=== PATIENT | male | born 1970 | race Caucasian/White ===

== ENCOUNTER 2016-12-22 12:57 | Inpatient (IN) | payer OTHER ==
[2016-12-22 17:59] VITALS: BMI 30.2
--- NOTE | 2016-12-22 19:14 | HP ---
COWS - Scale Resting Pulse: 1= CO 81-100 Sweatin= Chills/Flushing Restless Observation: 3= Extraneous Movement Pupil Size: 0= Normal to Room Light Bone or Joint Aches: 2= Severe Diffuse Aches Runny Nose/ Eye Tearin= Runny Nose/Eyes GI Upset > 30mins: 3= Vomiting/Diarrhea Tremor Observation: 2= Slight Tremor Visible Yawning Observation: 0= None Anxiety or Irritability: 2=Irritable/Anxious Goose Flesh Skin: 0=Smooth Skin COWS Score: 16 CIWA Score - CIWA Score Nausea/Vomitin Muscle Tremors: 4-Moderate,w/Arms Extend Anxiety: 4-Mod. Anxious/Guarded Agitation: 4-Moderately Restless Paroxysmal Sweats: 1-Minimal Palms Moist Orientation: 0-Oriented Tacttile Disturbances: 0-None Auditory Disturbances: 0-None Visual Disturbances: 0-None Headache: 1-Very Mild CIWA-Ar Total Score: 16 Admission ROS BHS - HPI Chief Complaint: withdrawal sx Allergies/Adverse Reactions: Allergies Allergy/AdvReac Type Severity Reaction Status Date / Time No Known Allergies Allergy Verified 12/22/16 19:13 History of Present Illness: 46 years old male with long history of alcohol opioid nicotine dependence has depression is admitted to detox Exam Limitations: No Limitations - Ebola screening Have you traveled outside of the country in the last 21 days: No Have you had contact with anyone from an Ebola affected area: No Have you been sick,other than usual withdrawal symptoms: No Do you have a fever: No - Review of Systems Constitutional: Chills, Changes in sleep, Weight Stable EENT: reports: No Symptoms Reported Respiratory: reports: No Symptoms reported Cardiac: reports: No Symptoms Reported GI: reports: Nausea, Poor Fluid Intake, Vomiting, Abdominal cramping : reports: No Symptoms Reported Musculoskeletal: reports: Back Pain, Joint Pain, Muscle Pain, Neck Pain Integumentary: reports: No Symptoms Reported Neuro: reports: Tremors Endocrine: reports: No Symptoms Reported Hematology: reports: No Symptoms Reported Psychiatric: reports: Judgement Intact, Orientated x3, Depressed Other Systems: Reviewed and Negative Patient History - Patient Medical History Hx Anemia: No Hx Asthma: No Hx Chronic Obstructive Pulmonary Disease (COPD): No Hx Cancer: No Hx Cardiac Disorders: No Hx Congestive Heart Failure: No Hx Hypertension: No Hx Hypercholesterolemia: No Hx Pacemaker: No HX Cerebrovascular Accident: No Hx Seizures: No Hx Dementia: No Hx Diabetes: No Hx Gastrointestinal Disorders: No Hx Liver Disease: No Hx Genitourinary Disorders: No Hx Sexually Transmitted Disorders: No Hx Renal Disease (ESRD): No Hx Thyroid Disease: No Hx Human Immunodeficiency Virus (HIV): No Hx Hepatitis C: No Hx Depression: Yes Hx Suicide Attempt: No Hx Bipolar Disorder: No Hx Schizophrenia: No - Patient Surgical History Past Surgical History: No - PPD History Previous Implant?: Yes Documented Results: Negative w/o proof Implanted On Prior [facility] Admission?: No PPD to be Administered?: Yes - Smoking Cessation Smoking history: Current every day smoker Have you smoked in the past 12 months: Yes Aproximately how many cigarettes per day: 20 Cigars Per Day: 0 Hx Chewing Tobacco Use: No Initiated information on smoking cessation: Yes 'Breaking Loose' booklet given: 12/22/16 - Substance & Tx. History Hx Alcohol Use: Yes Hx Substance Use: Yes Substance Use Type: Alcohol, Opiates Hx Substance Use Treatment: Yes - Substances Abused Alcohol Route: Oral Frequency: Daily Amount used: pint volka Age of first use: 7 Date of Last Use: 12/22/16 Heroin Route: Inhalation Frequency: Daily Amount used: 20 bags Age of first use: 23 Date of Last Use: 12/21/16 Family Disease History - Family Disease History Family Disease History: Heart Disease: Father (), Other: Father Admission Physical Exam BHS - Vital Signs Vital Signs: Vital Signs - 24 hr 12/22/16 17:50 Temperature 96.8 F L Pulse Rate 95 H Respiratory 18 Rate Blood Pressure 130/76 - Physical General Appearance: Yes: Appropriately Dressed, Mild Distress, Obese, Tremorous , Irritable, Sweating, Anxious HEENTM: Yes: Hearing grossly Normal, Normal ENT Inspection, Normocephalic, Normal Voice Respiratory: Yes: Chest Non-Tender, Lungs Clear, Normal Breath Sounds, No Respiratory Distress, No Accessory Muscle Use Neck: Yes: Supple, Trachea in good position Breast: Yes: Breasts Symetrical Cardiology: Yes: Regular Rhythm, S1, S2, Tachycardia Abdominal: Yes: Non Tender, Soft Genitourinary: Yes: Within Normal Limits Back: Yes: Normal Inspection Musculoskeletal: Yes: full range of Motion, Gait Steady, Back pain, Muscle Pain Extremities: Yes: Normal Inspection, Normal Range of Motion, Non-Tender, Tremors Neurological: Yes: Fully Oriented, Alert, Motor Strength 5/5, Normal Response, Depressed Affect, Babinski Integumentary: Yes: Warm Lymphatic: Yes: Within Normal Limits, Adenopathy - Diagnostic (1) Alcohol dependence with uncomplicated withdrawal Current Visit: Yes Status: Acute (2) Opioid dependence with withdrawal Current Visit: Yes Status: Acute (3) Nicotine dependence Current Visit: Yes Status: Acute Qualifiers: Nicotine product type: cigarettes Substance use status: in withdrawal Qualified Code(s): F17.213 - Nicotine dependence, cigarettes, with withdrawal (4) Depression (emotion) Current Visit: Yes Status: Suspected Qualifiers: Depression Type: dysthymia Qualified Code(s): F34.1 - Dysthymic disorder Cleared for Admission [facility] - Detox or Rehab [facility] Level of Care: Medically Managed Detox Regimen/Protocol: Methadone/Valium [facility] Breath Alcohol Content Breath Alcohol Content: 0.046 Urine Drug Screen - Results Drug Screen Negative: No Urine Drug Screen Results: OPI-Opiates
[2016-12-22] MEDS ORDERED: guaiFENesin/D-METHORPHAN HB 10 ML UNIT-DOSE CUPS PO PRN (19:17)
[2016-12-22] MEDS ORDERED: METHADONE HCL 10 MG TABLET (FOR DETOX USE ONLY) PO ONE ×2 (19:17→23:00)
[2016-12-22] MEDS ORDERED: diazePAM 5 MG TABLET PO ONE (19:17)
[2016-12-22] MEDS ORDERED: MAGNESIUM HYDROX 2400MG/30ML ORAL SUSPENSION 30 ML CUP PO PRN (19:17)
[2016-12-22] MEDS ORDERED: MENTHOL/PHENOL 1 EACH UD MM PRN (19:17)
[2016-12-22] MEDS ORDERED: MAGNESIUM CITRATE 300 ML BOTTLE PO PRN (19:17)
[2016-12-22] MEDS ORDERED: ACETAMINOPHEN 325 MG TABLET (FP) PO PRN (19:17)
[2016-12-22] MEDS ORDERED: LOPERAMIDE HCL 2 MG CAPSULE PO PRN (19:17)
[2016-12-22] MEDS ORDERED: NICOTINE POLACRILEX 4 MG GUM BC PRN (19:17)
[2016-12-22] MEDS ORDERED: P-EPHED 60MG/TRIPROLIDI 2.5MG TABLET PO PRN (19:17)
[2016-12-22] MEDS: diazePAM 5 MG TABLET PO SCH (22:50)
[2016-12-22] MEDS: diphenhydrAMINE HCL 50 MG CAPSULE PO PRN (22:50)
[2016-12-22] MEDS: THIAMINE HCL 100 MG TABLET (FP) PO SCH (22:51)
[2016-12-22 23:09] LABS: URINE APPEARANCE CLEAR; URINE BILIRUBIN NEGATIVE (NEGATIVE); URINE BLOOD NEGATIVE (NEGATIVE); URINE COLOR LTYELLOW; URINE GLUCOSE (UA) NEGATIVE (NEGATIVE); URINE KETONE NEGATIVE (NEGATIVE); URINE LEUK ESTERASE NEGATIVE (NEGATIVE); URINE NITRITE NEGATIVE (NEGATIVE); URINE PROTEIN NEGATIVE (NEGATIVE); URINE UROBILINOGEN NEGATIVE E.U./dl (0.2-1.0)
[2016-12-23] MEDS: diazePAM 5 MG TABLET PO SCH ×3 (05:36→22:44)
[2016-12-23] MEDS ORDERED: METHADONE HCL 10 MG TABLET (FOR DETOX USE ONLY) PO SCH (10:00)
[2016-12-23 10:24] LABS: MCH 30.4 pg (25.7-33.7); MEAN CELL VOLUME 89.4 fl (80-96); MEAN PLT VOLUME 8.4 fl (7.5-11.1); PLATELET COUNT 242 K/MM3 (134-434); RDW 14.1 % (11.9-15.9); WHITE BLOOD COUNT 7.5 K/mm3 (4.0-10.0)
[2016-12-23 10:51] LABS: ALBUMIN 3.7 g/dl (3.4-5.0); ALK PHOS 64 U/L (45-117); ANION GAP 9 (8-16); BILIRUBIN,TOTAL 0.8 mg/dL (0.2-1.0); CALCIUM 8.7 mg/dL (8.5-10.1); CO2 28 mmol/L (21-32); COCKROFT - GAULT 121.73; CREATININE 0.9 mg/dL (0.7-1.3); GLUCOSE,RANDOM 116 mg/dL (74-106); SGOT/AST 15 U/L (15-37); SGPT/ALT 20 U/L (12-78); TOT PROT 6.4 g/dl (6.4-8.2)
[2016-12-23] MEDS: PRENATAL VITAMINS W/ FOLIC ACID TABLET (FP) PO SCH (10:56)
[2016-12-23] MEDS: NICOTINE 21 MG/24 HOURS TOPICAL PATCH TD SCH (10:56)
[2016-12-23] MEDS: diazePAM 5 MG TABLET PO PRN ×2 (11:55→17:16)
--- NOTE | 2016-12-23 16:36 | PN ---
S CIWA - CIWA Score Nausea/Vomitin Muscle Tremors: 4-Moderate,w/Arms Extend Anxiety: 2 Agitation: 3 Paroxysmal Sweats: 3 Orientation: 0-Oriented Tacttile Disturbances: 0-None Auditory Disturbances: 2-Mild Harshness/Frighten Visual Disturbances: 1-Very Mild Sensitivity Headache: 2-Mild CIWA-Ar Total Score: 19 BHS COWS - Scale Resting Pulse: 1= [place] 81-100 Sweatin= Chills/Flushing Restless Observation: 0= Sits Still Pupil Size: 0= Normal to Room Light Bone or Joint Aches: 2= Severe Diffuse Aches Runny Nose/ Eye Tearin= Runny Nose/Eyes GI Upset > 30mins: 2= Nausea/Diarrhea Tremor Observation of Outstretched Hands: 2= Slight Tremor Visible Yawning Observation: 1= 1-2x During Session Anxiety or Irritability: 2=Irritable/Anxious Goose Flesh Skin: 3=Piloerection COWS Score: 16 S Progress Note (SOAP) Subjective: Nausea, H/A, Interrupted sleep, Body aches, Sweating, Tremors. Objective: PT. A & O X 3, OBSERVED AMBULATING ON UNIT. 12/23/16 16:35 Vital Signs Temperature 98.7 F 12/23/16 13:26 Pulse Rate 93 H 12/23/16 13:26 Respiratory Rate 20 12/23/16 13:26 Blood Pressure 105/74 12/23/16 13:26 O2 Sat by Pulse Oximetry (%) Laboratory Last Values WBC 7.5 K/mm3 (4.0-10.0) 12/23/16 07:40 RBC 4.61 M/mm3 (4.00-5.60) 12/23/16 07:40 Hgb 14.0 GM/dL (11.7-16.9) 12/23/16 07:40 Hct 41.2 % (35.4-49) 12/23/16 07:40 MCV 89.4 fl (80-96) 12/23/16 07:40 MCHC 34.0 g/dl (32.0-35.9) 12/23/16 07:40 RDW 14.1 % (11.9-15.9) 12/23/16 07:40 Plt Count 242 K/MM3 (134-434) 12/23/16 07:40 MPV 8.4 fl (7.5-11.1) 12/23/16 07:40 Sodium 141 mmol/L (136-145) 12/23/16 07:40 Potassium 4.5 mmol/L (3.5-5.1) 12/23/16 07:40 Chloride 104 mmol/L (98-107) 12/23/16 07:40 Carbon Dioxide 28 mmol/L (21-32) 12/23/16 07:40 Anion Gap 9 (8-16) 12/23/16 07:40 BUN 15 mg/dL (7-18) 12/23/16 07:40 Creatinine 0.9 mg/dL (0.7-1.3) 12/23/16 07:40 Creat Clearance w eGFR > 60 (>60) 12/23/16 07:40 Random Glucose 116 mg/dL (74-106) H 12/23/16 07:40 Calcium 8.7 mg/dL (8.5-10.1) 12/23/16 07:40 Total Bilirubin 0.8 mg/dL (0.2-1.0) 12/23/16 07:40 AST 15 U/L (15-37) 12/23/16 07:40 ALT 20 U/L (12-78) 12/23/16 07:40 Alkaline Phosphatase 64 U/L (45-117) 12/23/16 07:40 Total Protein 6.4 g/dl (6.4-8.2) 12/23/16 07:40 Albumin 3.7 g/dl (3.4-5.0) 12/23/16 07:40 Urine Color Ltyellow 12/22/16 22:09 Urine Appearance Clear 12/22/16 22:09 Urine pH 6.0 (5.0-8.0) 12/22/16 22:09 Urine Protein Negative (NEGATIVE) 12/22/16 22:09 Urine Glucose (UA) Negative (NEGATIVE) 12/22/16 22:09 Urine Ketones Negative (NEGATIVE) 12/22/16 22:09 Urine Blood Negative (NEGATIVE) 12/22/16 22:09 Urine Nitrite Negative (NEGATIVE) 12/22/16 22:09 Urine Bilirubin Negative (NEGATIVE) 12/22/16 22:09 Urine Urobilinogen Negative E.U./dl (0.2-1.0) 12/22/16 22:09 Ur Leukocyte Esterase Negative (NEGATIVE) 12/22/16 22:09 RPR Titer Nonreactive (NONREACTIVE) 12/23/16 07:40 LABS NOTED. Assessment: 12/23/16 16:36 WITHDRAWAL SYMPTOMS. Plan: CONTINUE DETOX. ADVISED PATIENT TO FOLLOW-UP WITH [facility] AFTER DISCHARGE FROM DETOX FOR GENERAL MEDICAL ASSESSMENT AND FOR ABNORMAL ADMISSION LAB VALUES.
[2016-12-23] MEDS: IBUPROFEN 400 MG TABLET (FP) PO PRN ×2 (17:16→23:14)
--- NOTE | 2016-12-23 17:23 | CONSULT ---
[facility] Psychiatric Consult - Data Date of interview: 12/23/16 Admission source: [facility] Identifying data: First admission to [facility] for this 46 y/o male seeking detox treatment,on ,for heroin and alcohol dependence.Patient is single without children,homeless,unemployed and supported on SSI benefits. Substance Abuse History: - Smoking Cessation. Smoking history: Current every day smoker. Have you smoked in the past 12 months: Yes. Aproximately how many cigarettes per day: 20. Cigars Per Day: 0. Hx Chewing Tobacco Use: No. Initiated information on smoking cessation: Yes. 'Breaking Loose' booklet given : 12/22/16. - Substance & Tx. History. Hx Alcohol Use: Yes. Hx Substance Use : Yes. Substance Use Type: Alcohol, Opiates. Hx Substance Use Treatment: Yes. - Substances Abused. Alcohol. Route: Oral. Frequency: Daily. Amount used: pint volka. Age of first use: 7. Date of Last Use: 12/22/16. Heroin. Route: Inhalation. Frequency: Daily. Amount used: 20 bags. Age of first use: 23. Date of Last Use: 12/21/16. Confirmed by patient. Medical History: Patient endorses good general health. Psychiatric History: No history of psychiatric hospializations.Patient reports psychiatric OPD care at the [facility] clinic in [facility].Diagnosed with MDD/Anxiety Disorder.Prescribed seroquel 400 mg po hs + celexa 20 mg/day + ambien 10 mg/hs (self-report).Mr Quinonez indicates that he took these medications two days ago.No history of suicide attempts. Physical/Sexual Abuse/Trauma History: Patient denies. Additional Comment: Urine Drug Screen Results: OPI-Opiates.Noted. Mental Status Exam - Mental Status Exam Alert and Oriented to: Time, Place, Person Cognitive Function: Good Patient Appearance: Well Groomed Mood: Nervous, Withdrawn, Anxious, Apprehensive Affect: Mood Congruent Patient Behavior: Fatigued, Appropriate, Cooperative Speech Pattern: Clear Voice Loudness: Normal Thought Process: Goal Oriented Thought Disorder: Not Present Hallucinations: Denies Suicidal Ideation: Denies Homicidal Ideation: Denies Insight/Judgement: Poor Sleep: Poorly, Difficulty falling asleep Appetite: Good Muscle strength/Tone: Normal Gait/Station: Normal Psychiatric Findings - Problem List ([place] 1, 2,3) (1) Alcohol dependence with uncomplicated withdrawal Current Visit: Yes Status: Acute (2) Nicotine dependence Current Visit: Yes Status: Acute Qualifiers: Nicotine product type: cigarettes Substance use status: in withdrawal Qualified Code(s): F17.213 - Nicotine dependence, cigarettes, with withdrawal (3) Opioid dependence with withdrawal Current Visit: Yes Status: Acute (4) MDD (major depressive disorder) Current Visit: Yes Status: Chronic (5) Insomnia Current Visit: Yes Status: Acute - Initial Treatment Plan Initial Treatment Plan: Psychoeducation.Detoxification.Medications : celexa 20 mg po daily + seroquel 100 mg po hs + ambien 5 mg po hs prn.Side effects/ benefits discussed with patient.He agrees with this plan of care.Observation.Medications are verified via survey of pharmacy claims : noted scripts for celexa 20 mg/30 days and seroquel 100 mg/30 tab for 30 days on at [facility] Medication Hx.No scripts needed at discharge.
[2016-12-23] MEDS ORDERED: QUEtiapine FUMARATE 50 MG TABLET ONE (21:37)
[2016-12-23] MEDS: THIAMINE HCL 100 MG TABLET (FP) PO SCH (22:43)
[2016-12-23] MEDS: QUEtiapine FUMARATE 100 MG TABLET (FP) PO SCH (22:44)
[2016-12-23] MEDS: diphenhydrAMINE HCL 50 MG CAPSULE PO PRN (22:46)
[2016-12-24] MEDS: diazePAM 5 MG TABLET PO PRN ×3 (05:46→17:15)
[2016-12-24] MEDS: NICOTINE 21 MG/24 HOURS TOPICAL PATCH TD SCH (10:44)
[2016-12-24] MEDS: CITALOPRAM HYDROBROMIDE 20 MG TABLET (FP) PO SCH (10:44)
[2016-12-24] MEDS: METHADONE HCL 5 MG TABLET (FOR DETOX USE ONLY) PO SCH (10:44)
[2016-12-24] MEDS: diazePAM 5 MG TABLET PO SCH ×2 (10:44→22:40)
[2016-12-24] MEDS: PRENATAL VITAMINS W/ FOLIC ACID TABLET (FP) PO SCH (10:44)
[2016-12-24] MEDS: IBUPROFEN 400 MG TABLET (FP) PO PRN ×2 (13:47→20:07)
--- NOTE | 2016-12-24 18:10 | PN ---
S CIWA - CIWA Score Nausea/Vomitin-No Nausea/No Vomiting Muscle Tremors: 4-Moderate,w/Arms Extend Anxiety: 3 Agitation: 1-Slight > Activity Paroxysmal Sweats: 3 Orientation: 0-Oriented Tacttile Disturbances: 0-None Auditory Disturbances: 2-Mild Harshness/Frighten Visual Disturbances: 3-Moderate Sensitivity Headache: 2-Mild CIWA-Ar Total Score: 18 BHS COWS - Scale Resting Pulse: 2= [place] 101-120 Sweatin= Chills/Flushing Restless Observation: 0= Sits Still Pupil Size: 0= Normal to Room Light Bone or Joint Aches: 2= Severe Diffuse Aches Runny Nose/ Eye Tearin= Runny Nose/Eyes GI Upset > 30mins: 1= Stomach Cramp Tremor Observation of Outstretched Hands: 2= Slight Tremor Visible Yawning Observation: 2= >3x During Session Anxiety or Irritability: 2=Irritable/Anxious Goose Flesh Skin: 0=Smooth Skin COWS Score: 14 S Progress Note (SOAP) Subjective: Stomach Cramping, H/A, Tremors, Body Aches, Interrupted sleep, Sweating. Objective: PT. A & O X 3, OBSERVED AMBULATING ON UNIT. 12/24/16 18:09 Vital Signs Temperature 98.4 F 12/24/16 17:45 Pulse Rate 99 H 12/24/16 17:45 Respiratory Rate 18 12/24/16 17:45 Blood Pressure 120/76 12/24/16 17:45 O2 Sat by Pulse Oximetry (%) Laboratory Last Values WBC 7.5 K/mm3 (4.0-10.0) 12/23/16 07:40 RBC 4.61 M/mm3 (4.00-5.60) 12/23/16 07:40 Hgb 14.0 GM/dL (11.7-16.9) 12/23/16 07:40 Hct 41.2 % (35.4-49) 12/23/16 07:40 MCV 89.4 fl (80-96) 12/23/16 07:40 MCHC 34.0 g/dl (32.0-35.9) 12/23/16 07:40 RDW 14.1 % (11.9-15.9) 12/23/16 07:40 Plt Count 242 K/MM3 (134-434) 12/23/16 07:40 MPV 8.4 fl (7.5-11.1) 12/23/16 07:40 Sodium 141 mmol/L (136-145) 12/23/16 07:40 Potassium 4.5 mmol/L (3.5-5.1) 12/23/16 07:40 Chloride 104 mmol/L (98-107) 12/23/16 07:40 Carbon Dioxide 28 mmol/L (21-32) 12/23/16 07:40 Anion Gap 9 (8-16) 12/23/16 07:40 BUN 15 mg/dL (7-18) 12/23/16 07:40 Creatinine 0.9 mg/dL (0.7-1.3) 12/23/16 07:40 Creat Clearance w eGFR > 60 (>60) 12/23/16 07:40 Random Glucose 116 mg/dL (74-106) H 12/23/16 07:40 Calcium 8.7 mg/dL (8.5-10.1) 12/23/16 07:40 Total Bilirubin 0.8 mg/dL (0.2-1.0) 12/23/16 07:40 AST 15 U/L (15-37) 12/23/16 07:40 ALT 20 U/L (12-78) 12/23/16 07:40 Alkaline Phosphatase 64 U/L (45-117) 12/23/16 07:40 Total Protein 6.4 g/dl (6.4-8.2) 12/23/16 07:40 Albumin 3.7 g/dl (3.4-5.0) 12/23/16 07:40 Urine Color Ltyellow 12/22/16 22:09 Urine Appearance Clear 12/22/16 22:09 Urine pH 6.0 (5.0-8.0) 12/22/16 22:09 Ur Specific [place] 1.015 (1.005-1.025) 12/22/16 22:09 Urine Protein Negative (NEGATIVE) 12/22/16 22:09 Urine Glucose (UA) Negative (NEGATIVE) 12/22/16 22:09 Urine Ketones Negative (NEGATIVE) 12/22/16 22:09 Urine Blood Negative (NEGATIVE) 12/22/16 22:09 Urine Nitrite Negative (NEGATIVE) 12/22/16 22:09 Urine Bilirubin Negative (NEGATIVE) 12/22/16 22:09 Urine Urobilinogen Negative E.U./dl (0.2-1.0) 12/22/16 22:09 Ur Leukocyte Esterase Negative (NEGATIVE) 12/22/16 22:09 RPR Titer Nonreactive (NONREACTIVE) 12/23/16 07:40 LABS NOTED. Assessment: 12/24/16 18:09 WITHDRAWAL SYMPTOMS. Plan: CONTINUE DETOX. ADVISED PATIENT TO FOLLOW-UP WITH REGISTERED NURSE AMBULATORY AFTER DISCHARGE FROM DETOX FOR GENERAL MEDICAL ASSESSMENT AND FOR ABNORMAL ADMISSION LAB VALUES.
[2016-12-24] MEDS: THIAMINE HCL 100 MG TABLET (FP) PO SCH (22:39)
[2016-12-24] MEDS: QUEtiapine FUMARATE 100 MG TABLET (FP) PO SCH (22:40)
[2016-12-24] MEDS: ZOLPIDEM TARTRATE 5 MG TABLET PO PRN (22:40)
[2016-12-25] MEDS: diphenhydrAMINE HCL 50 MG CAPSULE PO PRN (01:18)
[2016-12-25] MEDS: diazePAM 5 MG TABLET PO PRN ×3 (05:34→17:33)
[2016-12-25] MEDS: diazePAM 5 MG TABLET PO SCH ×2 (10:42→22:41)
[2016-12-25] MEDS: CITALOPRAM HYDROBROMIDE 20 MG TABLET (FP) PO SCH (10:42)
[2016-12-25] MEDS: METHADONE HCL 5 MG TABLET (FOR DETOX USE ONLY) PO SCH (10:43)
[2016-12-25] MEDS: PRENATAL VITAMINS W/ FOLIC ACID TABLET (FP) PO SCH (10:43)
[2016-12-25] MEDS: NICOTINE 21 MG/24 HOURS TOPICAL PATCH TD SCH (10:43)
--- NOTE | 2016-12-25 13:05 | EKG ---
Test Reason : Blood Pressure : / mmHG Vent. Rate : 083 BPM Atrial Rate : 083 BPM P-R Int : 146 ms QRS Dur : 106 ms QT Int : 406 ms P-R-T Axes : 027 -46 007 degrees QTc Int : 477 ms NORMAL SINUS RHYTHM LEFT ANTERIOR FASCICULAR BLOCK ABNORMAL ECG NO PREVIOUS ECGS AVAILABLE Confirmed by CARIDAD ANDINO, DAVID ([id number]) on 12/25/2016 1:05:09 PM Referred By: Confirmed By:DAVID MCLEAN MD
--- NOTE | 2016-12-25 13:26 | PN ---
BHS Progress Note (SOAP) Subjective: Sweating,interrupted sleep,restless. Objective: 12/25/16 13:25 Vital Signs - 8 hr 12/25/16 12/25/16 12/25/16 06:26 09:26 13:18 Temperature 95.4 F L 96.9 F L 95.9 F L Pulse Rate 82 87 90 Respiratory 18 18 18 Rate Blood Pressure 122/85 115/81 125/80 Laboratory Tests 12/22/16 12/23/16 12/23/16 22:09 07:40 07:40 WBC 7.5 RBC 4.61 Hgb 14.0 Hct 41.2 MCV 89.4 MCHC 34.0 RDW 14.1 Plt Count 242 MPV 8.4 Sodium 141 Potassium 4.5 Chloride 104 Carbon Dioxide 28 Anion Gap 9 BUN 15 Creatinine 0.9 Creat Clearance w eGFR > 60 Random Glucose 116 H Calcium 8.7 Total Bilirubin 0.8 AST 15 ALT 20 Alkaline Phosphatase 64 Total Protein 6.4 Albumin 3.7 Urine Color Ltyellow Urine Appearance Clear Urine pH 6.0 Ur Specific [place] 1.015 Urine Protein Negative Urine Glucose (UA) Negative Urine Ketones Negative Urine Blood Negative Urine Nitrite Negative Urine Bilirubin Negative Urine Urobilinogen Negative Ur Leukocyte Esterase Negative RPR Titer 12/23/16 07:40 WBC RBC Hgb Hct MCV MCHC RDW Plt Count MPV Sodium Potassium Chloride Carbon Dioxide Anion Gap BUN Creatinine Creat Clearance w eGFR Random Glucose Calcium Total Bilirubin AST ALT Alkaline Phosphatase Total Protein Albumin Urine Color Urine Appearance Urine pH Ur Specific Rudy Urine Protein Urine Glucose (UA) Urine Ketones Urine Blood Urine Nitrite Urine Bilirubin Urine Urobilinogen Ur Leukocyte Esterase RPR Titer Nonreactive labs noted Assessment: 12/25/16 13:25 Withdrawal sx. Plan: Continue detox
[2016-12-25] MEDS: IBUPROFEN 400 MG TABLET (FP) PO PRN ×2 (13:28→23:07)
[2016-12-25] MEDS: QUEtiapine FUMARATE 100 MG TABLET (FP) PO SCH (22:41)
[2016-12-25] MEDS: THIAMINE HCL 100 MG TABLET (FP) PO SCH (22:41)
[2016-12-25] MEDS: ZOLPIDEM TARTRATE 5 MG TABLET PO PRN (22:43)
[2016-12-26] MEDS: diphenhydrAMINE HCL 50 MG CAPSULE PO PRN ×2 (00:39→23:38)
[2016-12-26] MEDS: MAG HYDROX/AL HYDROX/SIMETH 30 ML UNIT-DOSE CUP PO PRN ×2 (00:39→23:38)
[2016-12-26] MEDS ORDERED: diazePAM 5 MG TABLET PO SCH (10:00)
[2016-12-26] MEDS ORDERED: METHADONE HCL 10 MG TABLET (FOR DETOX USE ONLY) PO SCH (10:00)
[2016-12-26] MEDS: CITALOPRAM HYDROBROMIDE 20 MG TABLET (FP) PO SCH (10:46)
[2016-12-26] MEDS: NICOTINE 21 MG/24 HOURS TOPICAL PATCH TD SCH (10:46)
[2016-12-26] MEDS: PRENATAL VITAMINS W/ FOLIC ACID TABLET (FP) PO SCH (10:46)
[2016-12-26] MEDS: IBUPROFEN 400 MG TABLET (FP) PO PRN ×2 (10:47→21:43)
--- NOTE | 2016-12-26 12:35 | PN ---
BHS Progress Note (SOAP) Subjective: ANXIETY,IRRITABILITY,SWEATS,RUNNY NOSE,NAUSEA. Objective: 12/26/16 12:35 Vital Signs Temperature 97.9 F 12/26/16 10:34 Pulse Rate 95 H 12/26/16 10:34 Respiratory Rate 18 12/26/16 10:34 Blood Pressure 114/79 12/26/16 10:34 O2 Sat by Pulse Oximetry (%) Laboratory Last Values WBC 7.5 K/mm3 (4.0-10.0) 12/23/16 07:40 RBC 4.61 M/mm3 (4.00-5.60) 12/23/16 07:40 Hgb 14.0 GM/dL (11.7-16.9) 12/23/16 07:40 Hct 41.2 % (35.4-49) 12/23/16 07:40 MCV 89.4 fl (80-96) 12/23/16 07:40 MCHC 34.0 g/dl (32.0-35.9) 12/23/16 07:40 RDW 14.1 % (11.9-15.9) 12/23/16 07:40 Plt Count 242 K/MM3 (134-434) 12/23/16 07:40 MPV 8.4 fl (7.5-11.1) 12/23/16 07:40 Sodium 141 mmol/L (136-145) 12/23/16 07:40 Potassium 4.5 mmol/L (3.5-5.1) 12/23/16 07:40 Chloride 104 mmol/L (98-107) 12/23/16 07:40 Carbon Dioxide 28 mmol/L (21-32) 12/23/16 07:40 Anion Gap 9 (8-16) 12/23/16 07:40 BUN 15 mg/dL (7-18) 12/23/16 07:40 Creatinine 0.9 mg/dL (0.7-1.3) 12/23/16 07:40 Creat Clearance w eGFR > 60 (>60) 12/23/16 07:40 Random Glucose 116 mg/dL (74-106) H 12/23/16 07:40 Calcium 8.7 mg/dL (8.5-10.1) 12/23/16 07:40 Total Bilirubin 0.8 mg/dL (0.2-1.0) 12/23/16 07:40 AST 15 U/L (15-37) 12/23/16 07:40 ALT 20 U/L (12-78) 12/23/16 07:40 Alkaline Phosphatase 64 U/L (45-117) 12/23/16 07:40 Total Protein 6.4 g/dl (6.4-8.2) 12/23/16 07:40 Albumin 3.7 g/dl (3.4-5.0) 12/23/16 07:40 Urine Color Ltyellow 12/22/16 22:09 Urine Appearance Clear 12/22/16 22:09 Urine pH 6.0 (5.0-8.0) 12/22/16 22:09 Ur Specific [place] 1.015 (1.005-1.025) 12/22/16 22:09 Urine Protein Negative (NEGATIVE) 12/22/16 22:09 Urine Glucose (UA) Negative (NEGATIVE) 12/22/16 22:09 Urine Ketones Negative (NEGATIVE) 12/22/16 22:09 Urine Blood Negative (NEGATIVE) 12/22/16 22:09 Urine Nitrite Negative (NEGATIVE) 12/22/16 22:09 Urine Bilirubin Negative (NEGATIVE) 12/22/16 22:09 Urine Urobilinogen Negative E.U./dl (0.2-1.0) 12/22/16 22:09 Ur Leukocyte Esterase Negative (NEGATIVE) 12/22/16 22:09 RPR Titer Nonreactive (NONREACTIVE) 12/23/16 07:40 Assessment: 12/26/16 12:35 WITHDRAWAL SX Plan: CONTINUE DETOX
[2016-12-26] MEDS ORDERED: ONDANSETRON *ODT* 4 MG TABLET SL PRN (12:36)
[2016-12-26] MEDS: QUEtiapine FUMARATE 100 MG TABLET (FP) PO SCH (21:43)
[2016-12-26] MEDS: THIAMINE HCL 100 MG TABLET (FP) PO SCH (21:46)
[2016-12-26] MEDS: ZOLPIDEM TARTRATE 5 MG TABLET PO PRN (21:46)
[2016-12-27] MEDS ORDERED: METHADONE HCL 5 MG TABLET (FOR DETOX USE ONLY) PO SCH (06:00)
[2016-12-27] MEDS: CITALOPRAM HYDROBROMIDE 20 MG TABLET (FP) PO SCH (09:41)
[2016-12-27] MEDS: NICOTINE 21 MG/24 HOURS TOPICAL PATCH TD SCH (09:41)
[2016-12-27] MEDS: PRENATAL VITAMINS W/ FOLIC ACID TABLET (FP) PO SCH (09:41)
--- NOTE | 2016-12-27 12:35 | DS ---
[facility] Detox Discharge Summary Admission Date: 12/22/16 Discharge Date: 12/27/16 - History Present History: Alcohol Dependence, Opioid Dependence Additional Comments: ADVISED PATIENT TO FOLLOW-UP WITH [facility] / REHAB MEDICAL PROVIDER AFTER DISCHARGE FROM DETOX FOR GENERAL MEDICAL ASSESSMENT. Pertinent Past History: Depression. - Physical Exam Results Vital Signs: Vital Signs Temperature 96.8 F L 12/27/16 10:28 Pulse Rate 81 12/27/16 10:28 Respiratory Rate 19 12/27/16 10:28 Blood Pressure 121/92 12/27/16 10:28 O2 Sat by Pulse Oximetry (%) Pertinent Admission Physical Exam Findings: WITHDRAWAL SYMPTOMS. Laboratory Last Values WBC 7.5 K/mm3 (4.0-10.0) 12/23/16 07:40 RBC 4.61 M/mm3 (4.00-5.60) 12/23/16 07:40 Hgb 14.0 GM/dL (11.7-16.9) 12/23/16 07:40 Hct 41.2 % (35.4-49) 12/23/16 07:40 MCV 89.4 fl (80-96) 12/23/16 07:40 MCHC 34.0 g/dl (32.0-35.9) 12/23/16 07:40 RDW 14.1 % (11.9-15.9) 12/23/16 07:40 Plt Count 242 K/MM3 (134-434) 12/23/16 07:40 MPV 8.4 fl (7.5-11.1) 12/23/16 07:40 Sodium 141 mmol/L (136-145) 12/23/16 07:40 Potassium 4.5 mmol/L (3.5-5.1) 12/23/16 07:40 Chloride 104 mmol/L (98-107) 12/23/16 07:40 Carbon Dioxide 28 mmol/L (21-32) 12/23/16 07:40 Anion Gap 9 (8-16) 12/23/16 07:40 BUN 15 mg/dL (7-18) 12/23/16 07:40 Creatinine 0.9 mg/dL (0.7-1.3) 12/23/16 07:40 Creat Clearance w eGFR > 60 (>60) 12/23/16 07:40 Random Glucose 116 mg/dL (74-106) H 12/23/16 07:40 Calcium 8.7 mg/dL (8.5-10.1) 12/23/16 07:40 Total Bilirubin 0.8 mg/dL (0.2-1.0) 12/23/16 07:40 AST 15 U/L (15-37) 12/23/16 07:40 ALT 20 U/L (12-78) 12/23/16 07:40 Alkaline Phosphatase 64 U/L (45-117) 12/23/16 07:40 Total Protein 6.4 g/dl (6.4-8.2) 12/23/16 07:40 Albumin 3.7 g/dl (3.4-5.0) 12/23/16 07:40 Urine Color Ltyellow 12/22/16 22:09 Urine Appearance Clear 12/22/16 22:09 Urine pH 6.0 (5.0-8.0) 12/22/16 22:09 Ur Specific [place] 1.015 (1.005-1.025) 12/22/16 22:09 Urine Protein Negative (NEGATIVE) 12/22/16 22:09 Urine Glucose (UA) Negative (NEGATIVE) 12/22/16 22:09 Urine Ketones Negative (NEGATIVE) 12/22/16 22:09 Urine Blood Negative (NEGATIVE) 12/22/16 22:09 Urine Nitrite Negative (NEGATIVE) 12/22/16 22:09 Urine Bilirubin Negative (NEGATIVE) 12/22/16 22:09 Urine Urobilinogen Negative E.U./dl (0.2-1.0) 12/22/16 22:09 Ur Leukocyte Esterase Negative (NEGATIVE) 12/22/16 22:09 RPR Titer Nonreactive (NONREACTIVE) 12/23/16 07:40 LABS NOTED. - Treatment Hospital Course: Detox Protocol Followed, Detoxed Safely, Responded well, Discharged Condition Good, Rehab Referral Accepted Patient has Accepted a Rehab Referral to: YES - [facility]. - Medication Discharge Medications: Ambulatory Orders Citalopram Hydrobromide [Celexa -] 20 mg PO DAILY #30 tablet 12/23/16 - Diagnosis (1) Alcohol dependence with uncomplicated withdrawal Current Visit: Yes Status: Acute (2) Insomnia Current Visit: Yes Status: Chronic Qualifiers: Insomnia type: unspecified Qualified Code(s): G47.00 - Insomnia, unspecified (3) Nicotine dependence Current Visit: Yes Status: Chronic Qualifiers: Nicotine product type: cigarettes Substance use status: in withdrawal Qualified Code(s): F17.213 - Nicotine dependence, cigarettes, with withdrawal (4) Opioid dependence with withdrawal Current Visit: Yes Status: Acute (5) MDD (major depressive disorder) Current Visit: Yes Status: Chronic Qualifiers: Major depression recurrence: recurrent Active/Remission status: remission status unspecified Qualified Code(s): F33.9 - Major depressive disorder, recurrent, unspecified - AMA Did Patient Leave Against Medical Advice: No
--- NOTE | 2016-12-27 14:06 | HP ---
Psychiatrist Admission - Data Date of interview: 12/27/16 Admission source: 3N Identifying data: This is the first [facility] admission for this 46 years old single male, unemployed on SSI, homeless Medical History: Unremarkable except LBP from herniated disc. Smokes cigarettes 1ppd Psychiatric History: Reports that he began to receiving psychiatric care in 2014 when he started attending [facility] where he was diagnosed with MDD. He has been precribed Celexa 20 mg po daily, Seroquel 100 mg po HS and Ambien 10 mg po HS. Denies previous hospitalization or suicidal attempt. He was seen by Dr Noel on 12/23/16 while in detox and was prescribed Celexa 20 mg po daily , Seroquel 100 mg po HS and Ambien 5 mg po HS prn for insomnia. At present, reports feeling anxious and sleeping poorly. Physical/Sexual Abuse/Trauma History: Denies history of emotional, physical or sexual abuse as well as DV relationship Additional Comment: No criminal history Vital Signs: Vital Signs - 24 hr 12/26/16 12/26/16 12/26/16 14:24 17:36 22:16 Temperature 98.8 F 98.0 F 96.5 F L Pulse Rate 96 H 100 H 89 Respiratory 18 18 18 Rate Blood Pressure 115/79 113/80 139/78 12/27/16 12/27/16 12/27/16 00:30 03:30 06:40 Temperature 96.7 F L Pulse Rate 75 Respiratory 18 18 16 Rate Blood Pressure 115/83 12/27/16 10:28 Temperature 96.8 F L Pulse Rate 81 Respiratory 19 Rate Blood Pressure 121/92 Allergies/Adverse Reactions: Allergies Allergy/AdvReac Type Severity Reaction Status Date / Time No Known Allergies Allergy Verified 12/22/16 19:13 Date of last physical exam: 12/22/16 Concur with the findings of this exam: Yes - Substance Abuse/Tx History Hx Alcohol Use: Yes Hx Substance Use: Yes Substance Use Type: Alcohol (Started drinking alcohol at age7, consumes one pint of vodka daily. Last drink on 12/22/16), Heroin (Started using heroin at age 23, consumes 20 bags daily. Last used on 12/21/16) Hx Substance Use Treatment: Yes (2 previous inpt detox. First inpt rehab) - Admission Criteria Previous failed treatment: No Poor recovery environment: Yes Comorbidities: Yes Lacks judgement: Yes Mental Status Exam - Mental Status Exam Alert and Oriented to: Time, Place, Person Cognitive Function: Fair Patient Appearance: Well Groomed Mood: Anxious Affect: Appropriate Patient Behavior: Cooperative Speech Pattern: Clear Voice Loudness: Normal Thought Process: Intact Thought Disorder: Not Present Hallucinations: Denies Suicidal Ideation: Denies Homicidal Ideation: Denies Insight/Judgement: Fair Sleep: Poorly Appetite: Fair Muscle strength/Tone: Normal Gait/Station: Normal Psychiatric Findings - Problem List ([place] 1, 2,3) (1) Alcohol dependence with uncomplicated withdrawal Current Visit: Yes Status: Acute (2) Opioid dependence with withdrawal Current Visit: Yes Status: Acute (3) Nicotine dependence Current Visit: Yes Status: Chronic Qualifiers: Nicotine product type: cigarettes Substance use status: in withdrawal Qualified Code(s): F17.213 - Nicotine dependence, cigarettes, with withdrawal (4) MDD (major depressive disorder) Current Visit: Yes Status: Chronic Qualifiers: Major depression recurrence: recurrent Active/Remission status: remission status unspecified Qualified Code(s): F33.9 - Major depressive disorder, recurrent, unspecified - Initial Treatment Plan Initial Treatment Plan: 1) Continue Celexa 20 mg po daily and Seroquel 100 mg po HS. 2) Monitor progress
[2016-12-27] MEDS: IBUPROFEN 400 MG TABLET (FP) PO PRN (20:39)
[2016-12-27] MEDS: QUEtiapine FUMARATE 100 MG TABLET (FP) PO SCH (21:20)
[2016-12-27] MEDS: THIAMINE HCL 100 MG TABLET (FP) PO SCH (21:20)
[2016-12-27] MEDS: diphenhydrAMINE HCL 50 MG CAPSULE PO PRN ×2 (21:21→22:44)
[2016-12-28] MEDS: hydrOXYzine PAMOATE 25 MG CAPSULE (FP) PO PRN ×2 (00:37→16:53)
[2016-12-28] MEDS: metFORMIN HCL 500 MG TABLET (FP) PO SCH ×2 (07:06→16:53)
[2016-12-28] MEDS: IBUPROFEN 400 MG TABLET (FP) PO PRN ×3 (10:24→21:51)
[2016-12-28] MEDS: PRENATAL VITAMINS W/ FOLIC ACID TABLET (FP) PO SCH (10:25)
[2016-12-28] MEDS: LISINOPRIL 5 MG TABLET (FP) PO SCH (10:25)
[2016-12-28] MEDS: ASPIRIN COATED 81 MG TABLET.EC PO SCH (10:25)
[2016-12-28] MEDS: CITALOPRAM HYDROBROMIDE 20 MG TABLET (FP) PO SCH (10:25)
[2016-12-28] MEDS: NICOTINE 21 MG/24 HOURS TOPICAL PATCH TD SCH (10:25)
--- NOTE | 2016-12-28 14:25 | PN ---
Psychiatric Progress Note Vital Signs: Vital Signs Period Temp Pulse Resp BP Sys/Raymond Pulse Ox Last 24 Hr 97.6 F 79 18-18 117/86 Date of Session: 12/28/16 Chief Complaint:: Insomnia HPI: Patient addressing Alcohol and Opoid Dependence comorbid with Nicotine Dependence and Major depressive Disorder Current Medications: Active Medications Generic Name Dose Route Start Last Admin Trade Name Freq PRN Reason Stop Dose Admin Acetaminophen 650 mg 12/22/16 19:17 12/27/16 22:45 Tylenol - PO 650 mg Q4H PRN Administration FEVER OR PAIN Al Hydroxide/Mg Hydroxide 30 ml 12/22/16 19:17 12/26/16 23:38 Mylanta Oral Suspension - PO 30 ml Q6H PRN Administration DYSPEPSIA Aspirin 81 mg 12/28/16 10:00 12/28/16 10:25 Ecotrin - PO 81 mg DAILY GUILLERMINA Administration Citalopram Hydrobromide 20 mg 12/24/16 10:00 12/28/16 10:25 Celexa - PO 20 mg DAILY GUILLERMINA Administration Diphenhydramine HCl 50 mg 12/22/16 19:17 12/27/16 22:44 Benadryl - PO 50 mg HSMR1 PRN Administration INSOMNIA Eucalyptus/Menthol/Phenol/Sorbitol 1 each 12/22/16 19:17 Cepastat Lozenge - MM Q4H PRN SORE THROAT Guaifenesin 10 ml 12/22/16 19:17 Robitussin Dm - PO Q6H PRN COUGH Hydroxyzine Pamoate 25 mg 12/26/16 10:41 12/28/16 00:37 Vistaril - PO 25 mg Q4H PRN Administration FOR ITCHING Ibuprofen 400 mg 12/22/16 19:17 12/28/16 10:24 Motrin - PO 400 mg Q6H PRN Administration SEVERE PAIN Lisinopril 5 mg 12/28/16 10:00 12/28/16 10:25 Prinivil PO 5 mg DAILY GUILLERMINA Administration Loperamide HCl 4 mg 12/22/16 19:17 Imodium - PO Q6H PRN DIARRHEA Magnesium Citrate 300 ml 12/22/16 19:17 Citroma - PO Q48H PRN CONSTIPATION Magnesium Hydroxide 30 ml 12/22/16 19:17 Milk Of Magnesia - PO DAILY PRN CONSTIPATION Metformin HCl 500 mg 12/28/16 07:00 12/28/16 07:06 Glucophage - PO 500 mg BID@0700,1630 GUILLERMINA Administration Nicotine 21 mg 12/23/16 10:00 12/28/16 10:25 Nicoderm Patch - TD 21 mg DAILY GUILLERMINA Administration Nicotine Polacrilex 4 mg 12/22/16 19:17 Nicorette Gum - BC Q2H PRN NICOTINE REPLACEMENT RX Ondansetron HCl 4 mg 12/26/16 12:36 Zofran Odt - SL Q6H PRN NAUSEA AND/OR VOMITING Multivit/Folic Acid/Iron 1 tab 12/23/16 10:00 12/28/16 10:25 Vitamins (Sjr) - PO 1 tab DAILY GUILLERMINA Administration Pseudoephedrine/Triprolidine 1 combo 12/22/16 19:17 Actifed - PO TID PRN NASAL CONGESTION Quetiapine Fumarate 100 mg 12/23/16 22:00 12/27/16 21:20 Seroquel - PO 100 mg HS GUILLERMINA Administration Thiamine HCl 100 mg 12/22/16 22:00 12/27/16 21:20 Vitamin B1 - PO 100 mg HS GUILLERMINA Administration Current Side Effect: No Lab tests ordered: Yes Lab tests reviewed: Yes Provider note:: Patient reports experioencing difficulty to sleep. Told shiela that he has been sleeping poorly despite taking Seroquel 100 mg po HS and Benadryl 50 mg x2. Trazadone 100 mg po HS will be added to his regimen to address sleep. Benefits vs Risks of medication discussed with patient and he agreed to take it Total face to face time:: 25 Mental Status Exam - Mental Status Exam Alert and Oriented to: Time, Place, Person Cognitive Function: Fair Patient Appearance: Well Groomed Mood: Hopeful, Euthymic Affect: Appropriate Patient Behavior: Cooperative Speech Pattern: Clear Voice Loudness: Normal Thought Process: Intact Thought Disorder: Not Present Hallucinations: Denies Suicidal Ideation: Denies Homicidal Ideation: Denies Insight/Judgement: Poor Sleep: Poorly Appetite: Good Muscle strength/Tone: Normal Gait/Station: Normal Psychiatric Treatment Plan - Problem List (1) Alcohol dependence with uncomplicated withdrawal Current Visit: Yes (2) Opioid dependence with withdrawal Current Visit: Yes (3) Nicotine dependence Current Visit: Yes Qualifiers: Nicotine product type: cigarettes Substance use status: in withdrawal Qualified Code(s): F17.213 - Nicotine dependence, cigarettes, with withdrawal (4) MDD (major depressive disorder) Current Visit: Yes Qualifiers: Major depression recurrence: recurrent Active/Remission status: remission status unspecified Qualified Code(s): F33.9 - Major depressive disorder, recurrent, unspecified Initial treatment plan: 1) Start Trazadone 100 mg po HS for insomnia. 2) Monitor progress
[2016-12-28] MEDS: diphenhydrAMINE HCL 25 MG CAPSULE (FP) PO PRN (15:56)
[2016-12-28] MEDS: QUEtiapine FUMARATE 100 MG TABLET (FP) PO SCH (21:50)
[2016-12-28] MEDS: THIAMINE HCL 100 MG TABLET (FP) PO SCH (21:50)
[2016-12-28] MEDS: traZODone HCL 100 MG TABLET (FP) PO SCH (21:50)
[2016-12-28] MEDS: diphenhydrAMINE HCL 50 MG CAPSULE PO PRN (21:51)
[2016-12-29] MEDS: diphenhydrAMINE HCL 50 MG CAPSULE PO PRN (00:52)
[2016-12-29] MEDS: hydrOXYzine PAMOATE 25 MG CAPSULE (FP) PO PRN (02:18)
[2016-12-29] MEDS: metFORMIN HCL 500 MG TABLET (FP) PO SCH ×2 (06:40→16:58)
[2016-12-29] MEDS: PRENATAL VITAMINS W/ FOLIC ACID TABLET (FP) PO SCH (10:42)
[2016-12-29] MEDS: LISINOPRIL 5 MG TABLET (FP) PO SCH (10:42)
[2016-12-29] MEDS: CITALOPRAM HYDROBROMIDE 20 MG TABLET (FP) PO SCH (10:42)
[2016-12-29] MEDS: ASPIRIN COATED 81 MG TABLET.EC PO SCH (10:42)
[2016-12-29] MEDS: NICOTINE 21 MG/24 HOURS TOPICAL PATCH TD SCH (10:42)
[2016-12-29] MEDS: THIAMINE HCL 100 MG TABLET (FP) PO SCH (21:49)
[2016-12-29] MEDS: QUEtiapine FUMARATE 100 MG TABLET (FP) PO SCH (21:49)
[2016-12-29] MEDS: traZODone HCL 100 MG TABLET (FP) PO SCH (21:49)
[2016-12-30] MEDS: metFORMIN HCL 500 MG TABLET (FP) PO SCH ×2 (06:54→16:42)
[2016-12-30] MEDS: LISINOPRIL 5 MG TABLET (FP) PO SCH (10:15)
[2016-12-30] MEDS: NICOTINE 21 MG/24 HOURS TOPICAL PATCH TD SCH (10:15)
[2016-12-30] MEDS: CITALOPRAM HYDROBROMIDE 20 MG TABLET (FP) PO SCH (10:15)
[2016-12-30] MEDS: PRENATAL VITAMINS W/ FOLIC ACID TABLET (FP) PO SCH (10:15)
[2016-12-30] MEDS: ASPIRIN COATED 81 MG TABLET.EC PO SCH (10:15)
[2016-12-30] MEDS: QUEtiapine FUMARATE 100 MG TABLET (FP) PO SCH (21:49)
[2016-12-30] MEDS: traZODone HCL 100 MG TABLET (FP) PO SCH (23:03)
[2016-12-30] MEDS: THIAMINE HCL 100 MG TABLET (FP) PO SCH (23:04)
[2016-12-31] MEDS: IBUPROFEN 400 MG TABLET (FP) PO PRN (01:39)
[2016-12-31] MEDS: metFORMIN HCL 500 MG TABLET (FP) PO SCH ×2 (07:10→16:43)
[2016-12-31] MEDS: LISINOPRIL 5 MG TABLET (FP) PO SCH (10:32)
[2016-12-31] MEDS: NICOTINE 21 MG/24 HOURS TOPICAL PATCH TD SCH (10:32)
[2016-12-31] MEDS: ASPIRIN COATED 81 MG TABLET.EC PO SCH (10:32)
[2016-12-31] MEDS: PRENATAL VITAMINS W/ FOLIC ACID TABLET (FP) PO SCH (10:32)
[2016-12-31] MEDS: CITALOPRAM HYDROBROMIDE 20 MG TABLET (FP) PO SCH (10:32)
[2016-12-31] MEDS: diphenhydrAMINE HCL 25 MG CAPSULE (FP) PO PRN (17:24)
[2016-12-31] MEDS: QUEtiapine FUMARATE 100 MG TABLET (FP) PO SCH (21:27)
[2016-12-31] MEDS: THIAMINE HCL 100 MG TABLET (FP) PO SCH (21:27)
[2016-12-31] MEDS: traZODone HCL 100 MG TABLET (FP) PO SCH (21:28)
[2017-01-01] MEDS: metFORMIN HCL 500 MG TABLET (FP) PO SCH ×2 (07:00→17:08)
[2017-01-01] MEDS: CITALOPRAM HYDROBROMIDE 20 MG TABLET (FP) PO SCH (10:51)
[2017-01-01] MEDS: ASPIRIN COATED 81 MG TABLET.EC PO SCH (10:51)
[2017-01-01] MEDS: LISINOPRIL 5 MG TABLET (FP) PO SCH (10:51)
[2017-01-01] MEDS: PRENATAL VITAMINS W/ FOLIC ACID TABLET (FP) PO SCH (10:53)
[2017-01-01] MEDS: NICOTINE 21 MG/24 HOURS TOPICAL PATCH TD SCH (10:53)
[2017-01-01] MEDS: IBUPROFEN 400 MG TABLET (FP) PO PRN (12:04)
[2017-01-01] MEDS: diphenhydrAMINE HCL 25 MG CAPSULE (FP) PO PRN (14:42)
[2017-01-01] MEDS: QUEtiapine FUMARATE 100 MG TABLET (FP) PO SCH (21:42)
[2017-01-01] MEDS: ATORVASTATIN CA 10 MG TABLET (FP) PO SCH (21:42)
[2017-01-01] MEDS: THIAMINE HCL 100 MG TABLET (FP) PO SCH (21:43)
[2017-01-01] MEDS: traZODone HCL 100 MG TABLET (FP) PO SCH (21:43)
[2017-01-02] MEDS: diphenhydrAMINE HCL 25 MG CAPSULE (FP) PO PRN (02:20)
[2017-01-02] MEDS: metFORMIN HCL 500 MG TABLET (FP) PO SCH ×2 (07:31→16:43)
[2017-01-02] MEDS: CITALOPRAM HYDROBROMIDE 20 MG TABLET (FP) PO SCH (10:30)
[2017-01-02] MEDS: ASPIRIN COATED 81 MG TABLET.EC PO SCH (10:30)
[2017-01-02] MEDS: PRENATAL VITAMINS W/ FOLIC ACID TABLET (FP) PO SCH (10:30)
[2017-01-02] MEDS: LISINOPRIL 5 MG TABLET (FP) PO SCH (10:30)
[2017-01-02] MEDS: NICOTINE 21 MG/24 HOURS TOPICAL PATCH TD SCH (10:30)
[2017-01-02] MEDS: THIAMINE HCL 100 MG TABLET (FP) PO SCH (21:24)
[2017-01-02] MEDS: ATORVASTATIN CA 10 MG TABLET (FP) PO SCH (21:24)
[2017-01-02] MEDS: traZODone HCL 100 MG TABLET (FP) PO SCH (23:28)
[2017-01-02] MEDS: QUEtiapine FUMARATE 100 MG TABLET (FP) PO SCH (23:28)
[2017-01-03] MEDS: metFORMIN HCL 500 MG TABLET (FP) PO SCH ×2 (06:33→16:51)
[2017-01-03] MEDS: LISINOPRIL 5 MG TABLET (FP) PO SCH (10:35)
[2017-01-03] MEDS: CITALOPRAM HYDROBROMIDE 20 MG TABLET (FP) PO SCH (10:35)
[2017-01-03] MEDS: ASPIRIN COATED 81 MG TABLET.EC PO SCH (10:35)
[2017-01-03] MEDS: NICOTINE 21 MG/24 HOURS TOPICAL PATCH TD SCH (10:36)
[2017-01-03] MEDS: PRENATAL VITAMINS W/ FOLIC ACID TABLET (FP) PO SCH (10:36)
[2017-01-03] MEDS: ATORVASTATIN CA 10 MG TABLET (FP) PO SCH (21:34)
[2017-01-03] MEDS: traZODone HCL 100 MG TABLET (FP) PO SCH (22:47)
[2017-01-03] MEDS: THIAMINE HCL 100 MG TABLET (FP) PO SCH ×2 (22:48→23:02)
[2017-01-03] MEDS: QUEtiapine FUMARATE 100 MG TABLET (FP) PO SCH (22:48)
[2017-01-04] MEDS: metFORMIN HCL 500 MG TABLET (FP) PO SCH ×2 (07:28→16:53)
[2017-01-04] MEDS: CITALOPRAM HYDROBROMIDE 20 MG TABLET (FP) PO SCH (09:43)
[2017-01-04] MEDS: ASPIRIN COATED 81 MG TABLET.EC PO SCH (09:43)
[2017-01-04] MEDS: LISINOPRIL 5 MG TABLET (FP) PO SCH (09:43)
[2017-01-04] MEDS: NICOTINE 21 MG/24 HOURS TOPICAL PATCH TD SCH (09:44)
[2017-01-04] MEDS: PRENATAL VITAMINS W/ FOLIC ACID TABLET (FP) PO SCH (09:44)
[2017-01-04] MEDS: diphenhydrAMINE HCL 50 MG CAPSULE PO PRN (21:04)
[2017-01-04] MEDS: QUEtiapine FUMARATE 100 MG TABLET (FP) PO SCH (21:04)
[2017-01-04] MEDS: THIAMINE HCL 100 MG TABLET (FP) PO SCH (21:04)
[2017-01-04] MEDS: ATORVASTATIN CA 10 MG TABLET (FP) PO SCH (21:05)
[2017-01-04] MEDS: traZODone HCL 100 MG TABLET (FP) PO SCH (21:05)
[2017-01-04] MEDS: hydrOXYzine PAMOATE 25 MG CAPSULE (FP) PO PRN (23:49)
[2017-01-05] MEDS: metFORMIN HCL 500 MG TABLET (FP) PO SCH (06:04)
[2017-01-05 06:48] VITALS: TEMP 97.5
[2017-01-05] MEDS: NICOTINE 21 MG/24 HOURS TOPICAL PATCH TD SCH (10:18)
[2017-01-05] MEDS: PRENATAL VITAMINS W/ FOLIC ACID TABLET (FP) PO SCH (10:18)
[2017-01-05] MEDS: CITALOPRAM HYDROBROMIDE 20 MG TABLET (FP) PO SCH (10:18)
[2017-01-05] MEDS: LISINOPRIL 5 MG TABLET (FP) PO SCH (10:19)
[2017-01-05] MEDS: ASPIRIN COATED 81 MG TABLET.EC PO SCH (10:19)
[2017-01-05 10:40] VITALS: BP 133/73; PULSE 74
--- NOTE | 2017-01-05 11:17 | PN ---
Psychiatric Progress Note Vital Signs: Vital Signs Period Temp Pulse Resp BP Sys/Raymond Pulse Ox Last 24 Hr 97.5 F-97.5 F 74-76 16-18 115-133/73-79 Date of Session: 01/05/17 Chief Complaint:: Discharge Note HPI: Patient addressing Alcohol and Opoid Dependence comorbid with Nicotine Dependence and MDD Current Medications: Active Medications Generic Name Dose Route Start Last Admin Trade Name Freq PRN Reason Stop Dose Admin Acetaminophen 650 mg 12/22/16 19:17 12/27/16 22:45 Tylenol - PO 650 mg Q4H PRN Administration FEVER OR PAIN Al Hydroxide/Mg Hydroxide 30 ml 12/22/16 19:17 12/26/16 23:38 Mylanta Oral Suspension - PO 30 ml Q6H PRN Administration DYSPEPSIA Aspirin 81 mg 12/28/16 10:00 01/05/17 10:19 Ecotrin - PO 81 mg DAILY GUILLERMINA Administration Atorvastatin Calcium 10 mg 01/01/17 22:00 01/04/17 21:05 Lipitor - PO 10 mg HS GUILLERMINA Administration Citalopram Hydrobromide 20 mg 12/24/16 10:00 01/05/17 10:18 Celexa - PO 20 mg DAILY GUILLERMINA Administration Diphenhydramine HCl 50 mg 12/22/16 19:17 01/04/17 21:04 Benadryl - PO 50 mg HSMR1 PRN Administration INSOMNIA Diphenhydramine HCl 25 mg 12/28/16 15:27 01/02/17 02:20 Benadryl - PO 25 mg Q6H PRN Administration FOR ITCHING Eucalyptus/Menthol/Phenol/Sorbitol 1 each 12/22/16 19:17 Cepastat Lozenge - MM Q4H PRN SORE THROAT Guaifenesin 10 ml 12/22/16 19:17 Robitussin Dm - PO Q6H PRN COUGH Hydroxyzine Pamoate 25 mg 12/26/16 10:41 01/04/17 23:49 Vistaril - PO 25 mg Q4H PRN Administration FOR ITCHING Ibuprofen 400 mg 12/22/16 19:17 01/01/17 12:04 Motrin - PO 400 mg Q6H PRN Administration SEVERE PAIN Lisinopril 5 mg 12/28/16 10:00 05/26/17 10:19 Prinivil PO 5 mg DAILY GUILLERMINA Administration Loperamide HCl 4 mg 12/22/16 19:17 Imodium - PO Q6H PRN DIARRHEA Magnesium Citrate 300 ml 12/22/16 19:17 Citroma - PO Q48H PRN CONSTIPATION Magnesium Hydroxide 30 ml 12/22/16 19:17 Milk Of Magnesia - PO DAILY PRN CONSTIPATION Metformin HCl 500 mg 12/28/16 07:00 01/05/17 06:04 Glucophage - PO Not Given BID@0700,1630 GUILLERMINA Nicotine 21 mg 12/23/16 10:00 01/05/17 10:18 Nicoderm Patch - TD Not Given DAILY GUILLERMINA Nicotine Polacrilex 4 mg 12/22/16 19:17 Nicorette Gum - BC Q2H PRN NICOTINE REPLACEMENT RX Ondansetron HCl 4 mg 12/26/16 12:36 Zofran Odt - SL Q6H PRN NAUSEA AND/OR VOMITING Multivit/Folic Acid/Iron 1 tab 12/23/16 10:00 01/05/17 10:18 Vitamins (Sjr) - PO Not Given DAILY GUILLERMINA Pseudoephedrine/Triprolidine 1 combo 12/22/16 19:17 Actifed - PO TID PRN NASAL CONGESTION Quetiapine Fumarate 100 mg 12/23/16 22:00 01/04/17 21:04 Seroquel - PO 100 mg HS GUILLERMINA Administration Thiamine HCl 100 mg 12/22/16 22:00 01/04/17 21:04 Vitamin B1 - PO 100 mg HS GUILLERMINA Administration Trazodone HCl 100 mg 12/28/16 22:00 01/04/17 21:05 Desyrel - PO Not Given HS GUILLERMINA Current Side Effect: No Lab tests ordered: Yes Lab tests reviewed: Yes Provider note:: Patient has completed this program today. He has met his short term goals and has refused referral to outpatient treatment. Told card writer hand that from his participation in this program, he has learned the value of attending AA /NA meeting in order to remain sober. He responded well to Celexa 20 mg po daily , Seroquel 100 mg po HS and Trazadone 100 mg po HS. He declined to have scripts electronically transmitted to his phamacy since he has enough supply of these medications at home. He is stable for discharge today Total face to face time:: 35 Mental Status Exam - Mental Status Exam Alert and Oriented to: Time, Place, Person Cognitive Function: Fair Patient Appearance: Well Groomed Mood: Hopeful, Euthymic Affect: Appropriate Patient Behavior: Cooperative Speech Pattern: Clear Voice Loudness: Normal Thought Process: Intact, Goal Oriented Thought Disorder: Not Present Hallucinations: Denies Suicidal Ideation: Denies Homicidal Ideation: Denies Insight/Judgement: Fair Sleep: Fair Appetite: Good Muscle strength/Tone: Normal Gait/Station: Normal Psychiatric Treatment Plan - Problem List (1) Alcohol dependence with uncomplicated withdrawal Current Visit: Yes (2) Opioid dependence with withdrawal Current Visit: Yes (3) Nicotine dependence Current Visit: Yes Qualifiers: Nicotine product type: cigarettes Substance use status: in withdrawal Qualified Code(s): F17.213 - Nicotine dependence, cigarettes, with withdrawal (4) MDD (major depressive disorder) Current Visit: Yes Qualifiers: Major depression recurrence: recurrent Active/Remission status: remission status unspecified Qualified Code(s): F33.9 - Major depressive disorder, recurrent, unspecified Initial treatment plan: Patient is discharged today without any referral because he refused
== END 2017-01-05 11:30 | disposition home or self-care (01) | DRG 895 ==
LOC: YASAS 12:57 → Y3N 20:03 → Y3W 12-27 12:42
PROVIDERS: ADMIT Internal Medicine Addiction Medicine; ATTEND Psychiatry & Neurology Psychiatry
PROC: HZ42ZZZ Group Counseling for Substance Abuse Treatment, Cognitive-Behavioral (ICD-10-PCS; principal; 2017-01-05)
DX: F19.20 Other psychoactive substance dependence, uncomplicated (principal); F11.23 Opioid dependence with withdrawal; F10.230 Alcohol dependence with withdrawal, uncomplicated; F17.213 Nicotine dependence, cigarettes, with withdrawal; F33.9 Major depressive disorder, recurrent, unspecified; G47.00 Insomnia, unspecified; Z59.0 Homelessness
CPT/HCPCS: 36415; 80053; 81003; 85027; 86593; 93005; 93010